=== PATIENT | male | born 1995 | race Caucasian/White ===

== ENCOUNTER 2017-10-07 12:48 | Inpatient (IN) | payer OTHER ==
[2017-10-07] MEDS ORDERED: DIPHTH/TETANUS/ACEL. PERTUSSIS IM ONE (13:00)
[2017-10-07] MEDS ORDERED: ONDANSETRON 4 MG/2 ML VIAL IVP ONE ×2 (13:00→15:30)
[2017-10-07] MEDS ORDERED: NS(*) 0.9% 1000 ML BAG 1,000 ML IV ONE (13:00)
[2017-10-07] MEDS ORDERED: BUPR-133 PO (13:06)
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
[2017-10-07] MEDS ORDERED: IOPAMIDOL 76% 100 ML INFUS BTL 100 ML ONE (13:22)
[2017-10-07 13:35] LABS: PLATELET COUNT, AUTOMATED 186 K/uL (150-450)
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
[2017-10-07 13:43] LABS: INR 1.15
--- NOTE | 2017-10-07 14:08 | EKG ---
FACILITY: [facility] PATIENT NAME: JOHAN SALCIDO : [id number] MR: [id number] V: [id number] EXAM DATE: ORDERING PHYSICIAN: YOGI CAMARGO TECHNOLOGIST: Test Reason : Blood Pressure : / mmHG Vent. Rate : 087 BPM Atrial Rate : 087 BPM P-R Int : 116 ms QRS Dur : 080 ms QT Int : 370 ms P-R-T Axes : 000 098 058 degrees QTc Int : 445 ms Normal sinus rhythm Rightward axis Non-specific T Changes No previous ECGs available Confirmed by ROXY DOVE ([id number]) on 10/07/2017 9:51:33 PM Referred By: Confirmed By:ROXY DOVE
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
[2017-10-07] MEDS ORDERED: EMS NS 0.9%(*) 1000 ML BAG 1,000 ML IV ONE (14:55)
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
[2017-10-07] MEDS ORDERED: MORPHINE 2 MG/ML SYR IVP ONE (15:30)
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
[2017-10-07 16:28] VITALS: BP 127/67
[2017-10-07] MEDS ORDERED: APAP/HYDROCODONE 325/5 TAB PO PRN (16:45)
[2017-10-07] MEDS ORDERED: ONDANSETRON 4 MG/2 ML VIAL IVP PRN (16:45)
[2017-10-07] MEDS ORDERED: LR(*) 1000 ML BAG 1,000 ML IV PRN (16:45)
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
[2017-10-07] MEDS: KETOROLAC 30 MG/ML VIAL IVP SCH ×2 (17:32→23:26)
[2017-10-07 19:38] VITALS: BP 116/66
[2017-10-07] MEDS: DOCUSATE SODIUM 100 MG CAP PO SCH (20:35)
[2017-10-07] MEDS: BACITRACIN OINT 0.9 GM PKT TP SCH (20:35)
[2017-10-07 23:24] VITALS: BP 106/63
[2017-10-08 03:12] VITALS: BP 111/65
[2017-10-08] MEDS: KETOROLAC 30 MG/ML VIAL IVP SCH ×3 (05:44→17:22)
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
[2017-10-08 05:47] LABS: PLATELET COUNT, AUTOMATED 174 K/uL (150-450)
[2017-10-08 07:09] VITALS: BP 107/73
[2017-10-08] MEDS: BACITRACIN OINT 0.9 GM PKT TP SCH ×2 (08:24→21:16)
[2017-10-08] MEDS: DOCUSATE SODIUM 100 MG CAP PO SCH ×2 (08:24→21:16)
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
[2017-10-08 10:26] VITALS: BP 123/85
[2017-10-08 12:02] VITALS: BP 113/55
[2017-10-08 14:32] VITALS: BP 119/92
[2017-10-08 19:18] VITALS: BP 130/86
[2017-10-09] MEDS: KETOROLAC 30 MG/ML VIAL IVP SCH ×2 (00:02→05:40)
[2017-10-09 00:13] VITALS: BP 113/55
[2017-10-09 03:08] VITALS: BP 108/60
[2017-10-09 07:46] VITALS: BP 129/84
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
[2017-10-09] MEDS ORDERED: LOR5/325 PO (09:25)
[2017-10-09] MEDS ORDERED: DOCU-202 PO (09:25)
[2017-10-09] MEDS ORDERED: BACOUD TP (09:25)
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
[2017-10-09] MEDS: BACITRACIN OINT 0.9 GM PKT TP SCH (10:46)
[2017-10-09] MEDS: DOCUSATE SODIUM 100 MG CAP PO SCH (10:46)
== END 2017-10-09 12:44 | disposition home or self-care (01) | DRG 200 ==
LOC: ER 13:01 → MED 15:48
PROVIDERS: ADMIT Surgery; ATTEND Surgery
DX: J93.83 Other pneumothorax (principal); S06.0X9A Concussion with loss of consciousness of unspecified duration, initial encounter; S22.41XA Multiple fractures of ribs, right side, initial encounter for closed fracture; S27.321A Contusion of lung, unilateral, initial encounter; S20.211A Contusion of right front wall of thorax, initial encounter; R40.2412 Glasgow coma scale score 13-15, at arrival to emergency department; S00.03XA Contusion of scalp, initial encounter; S50.12XA Contusion of left forearm, initial encounter; V49.9XXA Car occupant (driver) (passenger) injured in unspecified traffic accident, initial encounter; Y92.410 Unspecified street and highway as the place of occurrence of the external cause; Y99.8 Other external cause status; Z23 Encounter for immunization
CPT/HCPCS: 36415; 70450; 71045; 71260; 72125; 72128; 72131; 74177; 80305; 80320; 81001; 82040; 82247; 82310; 82374; 82435; 82565; 82947; 83690; 84075; 84132; 84155; 84295; 84450; 84460; 84520; 85025; 85610; 85730; 86703; 86803; 86850; 86900; 86901; 87340; 90715; 93005; 99291; C9399; J1885; J2270; J2405; J7030; J7120; Q9967

== ENCOUNTER → 2017-10-07 | Outpatient (CLI) | payer OTHER ==
[~2017-10-07] MED LIST: BACOUD TP; BUPR-133 PO; DOCU-202 PO; LOR5/325 PO
== END ==
LOC: AMB 12:04
PROVIDERS: ATTEND Nurse Practitioner
DX: S09.90XA Unspecified injury of head, initial encounter (principal); V49.9XXA Car occupant (driver) (passenger) injured in unspecified traffic accident, initial encounter; Y92.411 Interstate highway as the place of occurrence of the external cause
CPT/HCPCS: A0425; A0427